=== PATIENT | female | born 1990 | race Caucasian/White ===

== ENCOUNTER 2020-05-25 10:14 | Inpatient (IN) | payer OTHER ==
[2020-05-25] MEDS ORDERED: ACETAMINOPHEN 1000 MG/100 ML VIAL (NON FORMULARY) IVPB ONE (10:38)
[2020-05-25 10:40] VITALS: BMI 27.9
[2020-05-25 11:32] LABS: EPI CELLS 36 /uL (0-25.1); HYALINE CASTS 1 /uL (0-3.1); URINE APPEARANCE CLOUDY; URINE BACTERIA >9,000 /uL (0-1359); URINE BILIRUBIN NEGATIVE (NEGATIVE); URINE COLOR YELLOW; URINE GLUCOSE (UA) NEGATIVE (NEGATIVE); URINE KETONE NEGATIVE (NEGATIVE); URINE LEUK ESTERASE 3+ (NEGATIVE); URINE NITRITE NEGATIVE (NEGATIVE); URINE PROTEIN NEGATIVE (NEGATIVE); URINE RBC 20 /uL (0-23.9); URINE WBC 1260 /uL (0-25.8)
[2020-05-25] MEDS ORDERED: CEFTRIAXONE 1 GM in DEXTROSE 5%-WATER - 50 ML IVPB ONE (12:02)
[2020-05-25] MEDS ORDERED: CEFTRIAXONE 1 GM/50 ML BAG ONE (12:07)
[2020-05-25 12:13] LABS: BASO % 0.2 % (0-2.0); EOS % 0.3 % (0-4.5); HEMATOCRIT 31.3 % (32.4-45.2); MCH 30.8 pg (25.7-33.7); MCHC 35.3 g/dl (32.0-36.0); MEAN CELL VOLUME 87.5 fl (80-96); MEAN PLT VOLUME 9.4 fl (7.5-11.1); MONO % 7.4 % (3.8-10.2); NEUT % 78.1 % (42.8-82.8); PLATELET COUNT 179 K/MM3 (134-434); RBC 3.58 M/mm3 (3.60-5.2); RDW 13.3 % (11.6-15.6); WHITE BLOOD COUNT 9.6 K/mm3 (4.0-10.0)
[2020-05-25 12:31] LABS: POTASSIUM 4.1 mmol/L (3.5-5.1)
[2020-05-25 12:33] LABS: ALBUMIN 2.9 g/dl (3.4-5.0); CALCIUM 8.5 mg/dL (8.5-10.1)
[2020-05-25 12:37] LABS: CREATININE 0.5 mg/dL (0.55-1.3)
[2020-05-25 12:38] LABS: BILIRUBIN,TOTAL 0.4 mg/dL (0.2-1); TOT PROT 6.2 g/dl (6.4-8.2)
[2020-05-25] MEDS: ceFAZolin 2 GRAM PREMIX BAG IVPB SCH (16:15)
[2020-05-25] MEDS: DEXTROSE 5%-LACTATED RINGERS 1,000 ML IV SCH (16:15)
[2020-05-25] MEDS ORDERED: ceFAZolin 2 GRAM PREMIX BAG IVPB SCH ×3 (16:15→18:00)
[2020-05-25] MEDS ORDERED: ACETAMINOPHEN 325 MG TABLET (FP) PO PRN (16:16)
[2020-05-25] MEDS ORDERED: oxyCODONE HCL 5 MG TABLET PO PRN ×2 (16:16)
[2020-05-25] MEDS: IBUPROFEN 800 MG/8 ML IJ IVPB PRN (19:43)
[2020-05-26] MEDS: ceFAZolin 2 GRAM PREMIX BAG IVPB SCH ×4 (00:08→23:59)
[2020-05-26] MEDS: IBUPROFEN 800 MG/8 ML IJ IVPB PRN ×4 (01:27→20:23)
[2020-05-26] MEDS: PRENATAL VITAMINS W/ FOLIC ACID TABLET (FP) PO SCH (09:13)
[2020-05-26] MEDS: DEXTROSE 5%-LACTATED RINGERS 1,000 ML IV SCH (12:52)
[2020-05-26] MEDS ORDERED: ACETAMINOPHEN 1000 MG/100 ML VIAL (NON FORMULARY) IVPB PRN (21:30)
[2020-05-27] MEDS: ceFAZolin 2 GRAM PREMIX BAG IVPB SCH ×2 (08:29→16:08)
[2020-05-27] MEDS: PRENATAL VITAMINS W/ FOLIC ACID TABLET (FP) PO SCH (09:58)
[2020-05-27] MEDS ORDERED: LIDOCAINE HCL 2% JELLY 10 ML CARTRIDGE ONE (12:45)
[2020-05-27] MEDS ORDERED: EPHEDRINE SULFATE/0.9% NACL/PF 50 MG/10 ML SYRINGE NR ONE (12:54)
[2020-05-27] MEDS ORDERED: LIDOCAINE HCL 2% JELLY 10 ML CARTRIDGE TP ONE (13:06)
[2020-05-27] MEDS ORDERED: ACETAMINOPHEN 325 MG TABLET (FP) PO PRN ×2 (13:30→13:43)
[2020-05-27] MEDS ORDERED: ACETAMINOPHEN INJECTION 100 ML IVPB ONE (13:39)
[2020-05-27] MEDS ORDERED: DEXTROSE 5%-LACTATED RINGERS 1,000 ML IV SCH (13:43)
[2020-05-27] MEDS ORDERED: oxyCODONE HCL 5 MG TABLET PO PRN ×2 (13:43)
[2020-05-27] MEDS ORDERED: ACETAMINOPHEN 1000 MG/100 ML VIAL (NON FORMULARY) IVPB ONE (13:45)
[2020-05-27] MEDS ORDERED: HYDROmorphone HCl 2 MG/ML VIAL IVPB ONE (17:30)
[2020-05-27] MEDS: ACETAMINOPHEN 1000 MG/100 ML VIAL (NON FORMULARY) IVPB PRN (20:40)
[2020-05-28] MEDS: HYDROmorphone HCl 2 MG/ML VIAL IVPB PRN ×2 (00:13→06:07)
[2020-05-28] MEDS: ceFAZolin 2 GRAM PREMIX BAG IVPB SCH ×2 (00:50→07:57)
[2020-05-28] MEDS: ACETAMINOPHEN 1000 MG/100 ML VIAL (NON FORMULARY) IVPB PRN ×2 (03:06→09:05)
[2020-05-28] MEDS ORDERED: PRENATAL VITAMINS W/ FOLIC ACID TABLET (FP) PO SCH (10:00)
[2020-05-28 10:02] VITALS: BP 109/60; PULSE 82; TEMP 97.8
== END 2020-05-28 10:10 | disposition home or self-care (01) | DRG 566 ==
LOC: JER 10:14 → JERBED 15:27 → JLDR 16:00 → J3W 17:45
PROVIDERS: ADMIT Obstetrics & Gynecology; ATTEND Obstetrics & Gynecology
PROC: 0T768DZ Dilation of Right Ureter with Intraluminal Device, Via Natural or Artificial Opening Endoscopic (ICD-10-PCS; principal; 2020-05-27 14:00)
DX: O23.02 Infections of kidney in pregnancy, second trimester (principal); N13.6 Pyonephrosis; Z3A.21 21 weeks gestation of pregnancy
CPT/HCPCS: 36415; 76000-TC-FY; 76775-TC; 76815-TC; 76819-TC; 80053; 81003; 83690; 85025; 87086; 87186; 94760; 99285-25; C9803; J0131; U0003

== ENCOUNTER 2020-09-17 21:45 | Observation (INO) | payer OTHER ==
[2020-09-17 22:07] VITALS: BMI 34.1
[2020-09-17] MEDS ORDERED: ACETAMINOPHEN 500 MG TABLET (FP) PO ONE (22:44)
[2020-09-17] MEDS ORDERED: ACETAMINOPHEN 500 MG TABLET (FP) ONE (22:57)
[2020-09-17] MEDS ORDERED: ELECTROLYTE-148 SOLN 500 ML IV SCH (23:50)
[2020-09-18 08:17] VITALS: BP 134/82; PULSE 68; TEMP 98.1
== END 2020-09-18 09:35 | disposition home or self-care (01) ==
LOC: JER 21:45 → JLDR 09-18 06:20
PROVIDERS: ADMIT Specialist; ATTEND Specialist
PROC: 4A1HXCZ Monitoring of Products of Conception, Cardiac Rate, External Approach (ICD-10-PCS; principal; 2020-09-18)
PROC: BY4FZZZ Ultrasonography of Third Trimester, Single Fetus (ICD-10-PCS; 2020-09-18)
DX: O36.8330 Maternal care for abnormalities of the fetal heart rate or rhythm, third trimester, not applicable or unspecified (principal); O26.893 Other specified pregnancy related conditions, third trimester; Z3A.37 37 weeks gestation of pregnancy; S93.402A Sprain of unspecified ligament of left ankle, initial encounter; W18.39XA Other fall on same level, initial encounter; Y93.01 Activity, walking, marching and hiking; Y92.89 Other specified places as the place of occurrence of the external cause
CPT/HCPCS: 59025; 73610-TC-LT-FY; 76805-TC; 76819-TC; 99285-25; G0378

== ENCOUNTER 2020-10-01 17:30 | Inpatient (IN) | payer OTHER ==
[2020-10-01] MEDS ORDERED: DINOPROSTONE 10 MG VAGINAL SUPPOSITORY VG ONE (17:56)
[2020-10-01 18:51] VITALS: BMI 33.6
[2020-10-01 19:58] LABS: URINE BENZODIAZEPINES NEGATIVE (NEGATIVE)
[2020-10-01 19:59] LABS: COCAINE, UR NEGATIVE (NEGATIVE); METHADONE, UR NEGATIVE (NEGATIVE); OPIATES, URI NEGATIVE (NEGATIVE); PHENCYCLIDINE,URINE NEGATIVE (NEGATIVE); URINE AMPHETAMINES NEGATIVE (NEGATIVE); URINE BARBITURATES NEGATIVE (NEGATIVE)
[2020-10-01 20:52] LABS: BASO % 0.7 % (0-2.0); EOS % 0.2 % (0-4.5); HEMATOCRIT 34.1 % (32.4-45.2); HEMOGLOBIN 11.6 GM/dL (10.7-15.3); LYMPH % 17.1 % (8-40); MCH 29.3 pg (25.7-33.7); MEAN CELL VOLUME 86.2 fl (80-96); MEAN PLT VOLUME 8.7 fl (7.5-11.1); MONO % 9.7 % (3.8-10.2); NEUT % 72.3 % (42.8-82.8); PLATELET COUNT 212 10^3/uL (134-434); RBC 3.96 M/mm3 (3.60-5.2); RDW 12.9 % (11.6-15.6); WHITE BLOOD COUNT 11.6 K/mm3 (4.0-10.0)
[2020-10-01 20:58] LABS: INR 1.01 (0.83-1.09); PROTHROMBIN TIME (PATIENT) 12.2 SEC (9.7-13.0)
[2020-10-01 21:01] LABS: ACTIVATED PTT 25.7 SECONDS (25.2-36.5)
[2020-10-01 21:40] LABS: BLOOD UREA NITROGEN 12.9 mg/dL (7-18); CALCIUM 8.2 mg/dL (8.5-10.1); CREATININE 0.5 mg/dL (0.55-1.3)
[2020-10-01] MEDS ORDERED: BUTORPHANOL TARTRATE 1 MG/ML VIAL IVPB ONE (23:25)
[2020-10-01] MEDS ORDERED: PROMETHAZINE HCL 25 MG/1 ML VIAL IVPB ONE (23:25)
[2020-10-01] MEDS ORDERED: PROMETHAZINE HCL 25 MG/1 ML VIAL ONE (23:42)
[2020-10-01] MEDS ORDERED: BUTORPHANOL TARTRATE 1 MG/ML VIAL ONE (23:42)
[2020-10-01] MEDS: ELECTROLYTE-148 SOLN 1,000 ML IV SCH (23:48)
[2020-10-02] MEDS ORDERED: OXYTOCIN 30 UNITS in 0.9% NS 30 UNIT/500 ML INFUS.BAG IVPB SCH
[2020-10-02] MEDS ORDERED: PCA PUMP NR ONE (07:32)
[2020-10-02] MEDS ORDERED: FENTANYL/BUPIVACAINE/NS/PF - PCEA - 50 ML DISP.SYRIN EP ONE ×2 (07:32→12:08)
[2020-10-02] MEDS ORDERED: BUPIVACAINE HCL/PF 0.25% (2.5MG/ML) 10 ML VIAL ONE (07:49)
[2020-10-02] MEDS: FENTANYL/BUPIVACAINE/NS/PF - PCEA - 50 ML DISP.SYRIN EP SCH (08:00)
[2020-10-02] MEDS ORDERED: NALOXONE HCL 0.4 MG/ML VIAL IVPUSH PRN (08:16)
[2020-10-02] MEDS ORDERED: OXYTOCIN 30 UNITS in 0.9% NS 30 UNIT/500 ML INFUS.BAG IVPB ONE (08:48)
[2020-10-02] MEDS: ELECTROLYTE-148 SOLN 1,000 ML IV SCH ×2 (08:50→15:19)
[2020-10-02] MEDS ORDERED: LIDOCAINE HCL/EPINEPHRINE/PF 10 ML VIAL ONE (12:38)
[2020-10-02] MEDS ORDERED: morphine SULFATE/PF 0.5 MG/ML (2cc Syringe - QUVA) EP ONE (12:41)
[2020-10-02] MEDS ORDERED: ONDANSETRON 4 MG/2 ML VIAL IVPUSH PRN (12:41)
[2020-10-02] MEDS ORDERED: PHENYLEPHRINE HCL 10 MG/1 ML SINGLE DOSE VIAL ONE (12:54)
[2020-10-02] MEDS ORDERED: ceFAZolin SODIUM 1 GM VIAL ONE (12:54)
[2020-10-02] MEDS ORDERED: SODIUM CHLORIDE 0.9% P/F 10 ML VIAL IJ ONE (12:54)
[2020-10-02] MEDS ORDERED: OXYTOCIN 10 UNITS/ML VIAL ONE ×2 (13:07→13:10)
[2020-10-02] MEDS ORDERED: OXYTOCIN 20 UNITS in 0.9% NS 20 UNIT/1,000 ML INFUS.BAG IV ONE (14:43)
[2020-10-02] MEDS ORDERED: IBUPROFEN 800 MG/8 ML IJ IVPB ONE ×2 (14:43→14:50)
[2020-10-02] MEDS ORDERED: CITRIC ACID/SODIUM CITRATE 30 ML UNIT-DOSE CUP PO ONE (15:11)
[2020-10-02] MEDS ORDERED: oxyCODONE HCL 5 MG TABLET PO PRN (15:12)
[2020-10-02] MEDS ORDERED: SENNOSIDES/DOCUSATE COMBO (SENNA PLUS) TABLET (UD) PO PRN (15:12)
[2020-10-02] MEDS ORDERED: IBUPROFEN 800 MG/8 ML IJ IVPB PRN (15:12)
[2020-10-02] MEDS ORDERED: ONDANSETRON 4 MG/2 ML VIAL IVPB PRN (15:12)
[2020-10-02] MEDS ORDERED: OXYTOCIN 20 UNITS in 0.9% NS 20 UNIT/1,000 ML INFUS.BAG IV SCH (15:15)
[2020-10-02] MEDS: ACETAMINOPHEN 1000 MG/100 ML VIAL (NON FORMULARY) IVPB PRN (20:38)
[2020-10-03] MEDS: ACETAMINOPHEN 1000 MG/100 ML VIAL (NON FORMULARY) IVPB PRN (01:45)
[2020-10-03] MEDS: ACETAMINOPHEN 325 MG TABLET (FP) PO PRN ×3 (07:50→22:34)
[2020-10-03] MEDS: IBUPROFEN 600 MG TABLET (FP) PO PRN ×4 (07:52→22:35)
[2020-10-03] MEDS: SIMETHICONE 80 MG TAB.CHEW (FP) PO PRN (07:53)
[2020-10-03] MEDS ORDERED: oxyCODONE HCL 5 MG TABLET PO PRN (09:47)
[2020-10-03 10:00] LABS: BASO % 0.2 % (0-2.0); EOS % 0.7 % (0-4.5); HEMATOCRIT 31.8 % (32.4-45.2); HEMOGLOBIN 10.6 GM/dL (10.7-15.3); LYMPH % 17.6 % (8-40); MCH 29.1 pg (25.7-33.7); MCHC 33.3 g/dl (32.0-36.0); MEAN CELL VOLUME 87.5 fl (80-96); MEAN PLT VOLUME 8.7 fl (7.5-11.1); MONO % 10.5 % (3.8-10.2); PLATELET COUNT 180 10^3/uL (134-434); RBC 3.64 M/mm3 (3.60-5.2); RDW 13.2 % (11.6-15.6); WHITE BLOOD COUNT 13.4 K/mm3 (4.0-10.0)
[2020-10-03] MEDS: FENTANYL/BUPIVACAINE/NS/PF - PCEA - 50 ML DISP.SYRIN EP SCH (14:27)
[2020-10-03] MEDS ORDERED: BISACODYL 10 MG SUPP.RECT RC PRN (15:12)
[2020-10-03] MEDS: ELECTROLYTE-148 SOLN 1,000 ML IV SCH (16:06)
[2020-10-04] MEDS: IBUPROFEN 600 MG TABLET (FP) PO PRN ×3 (07:18→18:35)
[2020-10-04] MEDS: ACETAMINOPHEN 325 MG TABLET (FP) PO PRN ×3 (07:19→18:36)
[2020-10-04 09:57] LABS: BASO % 0.2 % (0-2.0); EOS % 0.5 % (0-4.5); HEMATOCRIT 28.4 % (32.4-45.2); HEMOGLOBIN 9.6 GM/dL (10.7-15.3); MCH 29.4 pg (25.7-33.7); MCHC 33.8 g/dl (32.0-36.0); MEAN CELL VOLUME 86.9 fl (80-96); MONO % 6.8 % (3.8-10.2); NEUT % 79.5 % (42.8-82.8); PLATELET COUNT 192 10^3/uL (134-434); RBC 3.27 M/mm3 (3.60-5.2); RDW 13.4 % (11.6-15.6); WHITE BLOOD COUNT 10.4 K/mm3 (4.0-10.0)
[2020-10-04] MEDS: SIMETHICONE 80 MG TAB.CHEW (FP) PO PRN (18:35)
[2020-10-05] MEDS: ACETAMINOPHEN 325 MG TABLET (FP) PO PRN ×2 (00:17→06:49)
[2020-10-05] MEDS: IBUPROFEN 600 MG TABLET (FP) PO PRN ×3 (00:17→10:48)
[2020-10-05] MEDS: SIMETHICONE 80 MG TAB.CHEW (FP) PO PRN ×3 (00:18→10:48)
[2020-10-05 11:40] VITALS: BP 139/91; PULSE 90; TEMP 97.8
== END 2020-10-05 11:30 | disposition home or self-care (01) | DRG 540 ==
LOC: JLDR 17:30 → J3W 10-02 15:45
PROVIDERS: ADMIT Specialist; ATTEND Specialist
PROC: 3E0P7VZ Introduction of Hormone into Female Reproductive, Via Natural or Artificial Opening (ICD-10-PCS; 2020-10-01)
PROC: 10D00Z1 Extraction of Products of Conception, Low, Open Approach (ICD-10-PCS; principal; 2020-10-02)
PROC: 10907ZC Drainage of Amniotic Fluid, Therapeutic from Products of Conception, Via Natural or Artificial Opening (ICD-10-PCS; 2020-10-02)
DX: O62.9 Abnormality of forces of labor, unspecified (principal); O76 Abnormality in fetal heart rate and rhythm complicating labor and delivery; O69.81X0 Labor and delivery complicated by cord around neck, without compression, not applicable or unspecified; Z37.0 Single live birth; Z3A.39 39 weeks gestation of pregnancy
CPT/HCPCS: 36415; 80048; 80307; 85025; 85610; 85730; 86780; 86850; 86900; 86901; 88307-TC; C9803; J0131; U0003; U0005

== ENCOUNTER 2020-10-09 21:56 | Emergency (ER) | payer OTHER ==
[2020-10-09 22:35] VITALS: TEMP 98.6; BMI 33.3
[2020-10-09 23:20] LABS: BASO % 0.8 % (0-2.0); HEMATOCRIT 29.7 % (32.4-45.2); HEMOGLOBIN 10.1 GM/dL (10.7-15.3); LYMPH % 31.3 % (8-40); MCH 29.1 pg (25.7-33.7); MEAN CELL VOLUME 85.7 fl (80-96); MEAN PLT VOLUME 7.1 fl (7.5-11.1); MONO % 9.2 % (3.8-10.2); NEUT % 56.7 % (42.8-82.8); PLATELET COUNT 298 10^3/uL (134-434); RBC 3.47 M/mm3 (3.60-5.2); RDW 12.9 % (11.6-15.6); WHITE BLOOD COUNT 7.1 K/mm3 (4.0-10.0)
[2020-10-09 23:34] LABS: PH,URINE 6.5 (5.0-8.0); URINE APPEARANCE CLEAR; URINE BILIRUBIN NEGATIVE (NEGATIVE); URINE COLOR YELLOW; URINE GLUCOSE (UA) NEGATIVE (NEGATIVE); URINE KETONE NEGATIVE (NEGATIVE); URINE LEUK ESTERASE NEGATIVE (NEGATIVE); URINE NITRITE NEGATIVE (NEGATIVE); URINE PROTEIN NEGATIVE (NEGATIVE)
[2020-10-09 23:44] LABS: CALCIUM 8.3 mg/dL (8.5-10.1)
[2020-10-09 23:45] LABS: BLOOD UREA NITROGEN 12.3 mg/dL (7-18)
[2020-10-09 23:48] LABS: CREATININE 0.7 mg/dL (0.55-1.3)
[2020-10-09 23:50] LABS: BILIRUBIN,TOTAL 0.2 mg/dL (0.2-1); TOT PROT 6.6 g/dl (6.4-8.2)
[2020-10-09] MEDS ORDERED: ACETAMINOPHEN 325 MG TABLET (FP) PO ONE (23:54)
[2020-10-09] MEDS ORDERED: LACTATED RINGERS SOLUTION 1000 ML INFUS.BAG IV ONE (23:54)
[2020-10-10] MEDS ORDERED: ACETAMINOPHEN 325 MG TABLET (FP) ONE (00:11)
[2020-10-10 00:55] VITALS: BP 124/76; PULSE 78
== END 2020-10-10 00:59 | disposition home or self-care (01) ==
LOC: JER 21:56
DX: R22.41 Localized swelling, mass and lump, right lower limb (principal); R22.42 Localized swelling, mass and lump, left lower limb
CPT/HCPCS: 36415; 80053; 81003; 85025; 93970-TC; 99284-25

== ENCOUNTER 2021-03-07 11:11 | Emergency (ER) | payer OTHER ==
[2021-03-07 11:18] VITALS: BP 156/89; PULSE 118; TEMP 98.2; BMI 28.2
== END 2021-03-07 12:38 | disposition home or self-care (01) ==
LOC: JERFT 11:11
PROC: 0HQEXZZ Repair Left Lower Arm Skin, External Approach (ICD-10-PCS; principal; 2021-03-07)
DX: S51.812A Laceration without foreign body of left forearm, initial encounter (principal); W26.0XXA Contact with knife, initial encounter
CPT/HCPCS: 12004; 99284-25

== ENCOUNTER 2024-10-24 15:38 | Inpatient (IN) | payer OTHER ==
[2024-10-24 16:09] VITALS: BMI 29.2
[2024-10-24] MEDS ORDERED: LOPERAMIDE HCL 2 MG CAPSULE PO PRN (17:28)
[2024-10-24] MEDS ORDERED: MAGNESIUM HYDROX 2400MG/30ML ORAL SUSPENSION 30 ML CUP PO PRN (17:28)
[2024-10-24] MEDS ORDERED: NALOXONE (NARCAN) HCL 4 MG/0.1 ML SPRAY NS PRN (17:28)
[2024-10-24] MEDS ORDERED: MAG HYDROX/AL HYDROX/SIMETH 30 ML UNIT-DOSE CUP PO PRN (17:28)
[2024-10-24] MEDS ORDERED: IBUPROFEN 600 MG TABLET (FP) PO PRN (17:28)
[2024-10-24] MEDS ORDERED: BENZOCAINE/MENTHOL (CHLORASEPTIC ) LOZENGE MM PRN (17:28)
[2024-10-24] MEDS ORDERED: BENZONATATE 200 MG CAPSULE PO PRN (17:28)
[2024-10-24] MEDS ORDERED: IBUPROFEN 400 MG TABLET (FP) PO PRN (17:28)
[2024-10-24] MEDS ORDERED: guaiFENesin 600 MG TABLET.ER (FP) PO PRN (17:28)
[2024-10-24] MEDS ORDERED: POLYETHYLENE GLYCOL (HEALTHYLAX) 3350 17 GM PACKET PO PRN (17:28)
[2024-10-24 21:07] LABS: EPI CELLS >36 /uL (0-25.1); HYALINE CASTS 3 /uL (0-3.1); URINE APPEARANCE CLOUDY; URINE BACTERIA 4040 /uL (0-1359); URINE BILIRUBIN NEGATIVE (NEGATIVE); URINE COLOR YELLOW; URINE GLUCOSE (UA) NEGATIVE (NEGATIVE); URINE KETONE NEGATIVE (NEGATIVE); URINE LEUK ESTERASE 2+ (NEGATIVE); URINE NITRITE NEGATIVE (NEGATIVE); URINE PROTEIN 1+ (NEGATIVE); URINE RBC 6 /uL (0-23.9); URINE UROBILINOGEN 1.0 mg/dL (0.2-1.0); URINE WBC 50 /uL (0-25.8)
[2024-10-24] MEDS: LINEZOLID 600 MG TABLET (RESTRICTED TO ID) PO SCH (21:44)
[2024-10-24] MEDS: THIAMINE 100 MG TABLET PO SCH (21:44)
[2024-10-24] MEDS: MELATONIN 5 MG TABLETS PO SCH (21:44)
[2024-10-24] MEDS: MIRTAZAPINE 15 MG TABLET (FP) PO SCH (21:45)
[2024-10-24] MEDS: TUBERCULIN PPD 5 TU/0.1ML SYRINGE (IN PATIENT USE ONLY) ID ONE (21:56)
[2024-10-25] MEDS: PRENATAL VITAMINS W/ FOLIC ACID TABLET (FP) PO SCH (09:17)
[2024-10-25] MEDS: NICOTINE 21 MG/24 HOURS TOPICAL PATCH TD SCH (09:17)
[2024-10-25] MEDS: TRIAMCINOLONE ACET 0.1% CREAM 15 GM TUBE TP SCH (09:18)
[2024-10-25 11:37] LABS: MCHC 31.4 g/dl (32.2-35.5); MEAN CELL VOLUME 85.8 fl (79.4-94.8); MEAN PLT VOLUME 11.1 fl (9.4-12.3); RDW 16.1 % (12.1-16.8)
[2024-10-25 12:12] LABS: CO2 26 mmol/L (21-32); GLUCOSE,RANDOM 147 mg/dL (74-106)
[2024-10-25 12:16] LABS: CREATININE 0.7 mg/dL (0.55-1.3); SGOT/AST 15 U/L (15-37); SGPT/ALT 22 U/L (13-61)
[2024-10-25 12:18] LABS: ALK PHOS 106 U/L (45-117); TOT PROT 7.2 g/dl (6.4-8.2)
[2024-10-25 13:26] LABS: SYPHILIS W/ RPR CONF NON-REACTIVE (NONREACTIVE)
[2024-10-25 14:00] LABS: HIV INTERPRETATION NEGATIVE (NEGATIVE)
[2024-10-25 14:01] LABS: HCV DIAGNOSTIC IN-HOUSE W/RFLX NON-REACTIVE (NONREACTIVE)
[2024-10-27] MEDS: SUVOREXANT 10 MG TABLET PO PRN (21:24)
[2024-10-28] MEDS: SERTRALINE HCL 50 MG TABLET (FP) PO SCH (10:01)
[2024-10-28] MEDS: ACETAMINOPHEN 325 MG TABLET (FP) PO PRN (10:02)
[2024-10-30] MEDS: SUVOREXANT 15 MG TABLET PO SCH (21:29)
[2024-10-30] MEDS ORDERED: SUVOREXANT 10 MG TABLET PO SCH (22:00)
[2024-11-03] MEDS: SUVOREXANT 20 MG TABLET PO SCH (21:19)
[2024-11-08] MEDS: hydrOXYzine PAMOATE 25 MG CAPSULE (FP) PO PRN (15:47)
[2024-11-10 13:26] LABS: MCHC 30.8 g/dl (32.2-35.5); MEAN CELL VOLUME 88.3 fl (79.4-94.8); MEAN PLT VOLUME 9.5 fl (9.4-12.3); RDW 16.6 % (12.1-16.8)
[2024-11-11] MEDS: hydrOXYzine PAMOATE 25 MG CAPSULE (FP) PO PRN (12:36)
[2024-11-14 06:50] VITALS: RESP 16
[2024-11-15 07:06] VITALS: TEMP 96.9
[2024-11-15 09:07] VITALS: BP 122/77; PULSE 89
== END 2024-11-15 10:13 | disposition home or self-care (01) | DRG 772 ==
LOC: YASAS 15:38 → Y3NR 18:17 → Y5N 10-25 12:21
PROVIDERS: ADMIT Family Medicine; ATTEND Psychiatry & Neurology Pain Medicine
PROC: HZ42ZZZ Group Counseling for Substance Abuse Treatment, Cognitive-Behavioral (ICD-10-PCS; principal; 2024-10-24)
DX: F11.20 Opioid dependence, uncomplicated (principal); F14.20 Cocaine dependence, uncomplicated; F15.20 Other stimulant dependence, uncomplicated; F17.210 Nicotine dependence, cigarettes, uncomplicated; F31.9 Bipolar disorder, unspecified; F43.10 Post-traumatic stress disorder, unspecified; I33.0 Acute and subacute infective endocarditis; Z86.14 Personal history of Methicillin resistant Staphylococcus aureus infection
CPT/HCPCS: 36415; 80053; 80305; 80307; 81003; 81025; 82962; 85025; 85027; 86780; 86803; 87389; 87811; 93005; 93010